=== PATIENT | female | born 1960 | race Caucasian/White ===

== ENCOUNTER 2017-12-19 13:42 | Emergency (ER) | payer OTHER ==
[2017-12-19 16:41] LABS: ADD MAN DIFF? NO
[2017-12-19 16:45] LABS: WHITE BLOOD COUNT 12.2 10^3/ul (4.8-10.8)
[2017-12-19 16:45] LABS: ABNORMAL IP MESSAGE 1; BASOPHIL # 0.1 10^3/ul (0.0-0.1); BASOPHILS % 0.6 % (0.0-2.0); EOSINOPHILS # 0.2 10^3/ul (0.0-0.5); EOSINOPHILS % 1.7 % (0.0-7.0); HEMATOCRIT 41.3 % (37.0-47.0); HEMOGLOBIN 13.4 g/dl (12.0-16.0); LYMPHOCYTES # 6.1 10^3/ul (0.8-2.9); LYMPHOCYTES % 50.3 % (15.0-51.0); MEAN CORPUSCULAR HEMOGLOBIN 26.2 pg (29.0-33.0); MEAN CORPUSCULAR HGB CONC 32.4 g/dl (32.0-37.0); MEAN CORPUSCULAR VOLUME 80.7 fl (82.0-101.0); MEAN PLATELET VOLUME 10.9 fl (7.4-10.4); MONOCYTES % 8.5 % (0.0-11.0); NEUTROPHIL # 4.7 10^3/ul (1.6-7.5); NEUTROPHILS % 38.7 % (39.0-77.0); PLATELET COUNT 255 10^3/UL (140-415); RED BLOOD COUNT 5.12 10^6/ul (4.20-5.40)
[2017-12-19 16:57] LABS: POSITIVE DIFF @See below
[2017-12-19 17:02] LABS: ANION GAP 10 (8-16); BLOOD UREA NITROGEN 10 mg/dl (7-20); CALCIUM 9.1 mg/dl (8.4-10.2); CARBON DIOXIDE 27 mmol/L (21-31); CHLORIDE 106 mmol/L (97-110); CREATININE 0.69 mg/dl (0.44-1.00); GLUCOSE 83 mg/dl (70-220); POTASSIUM 4.3 mmol/L (3.5-5.1); SODIUM 139 mmol/L (135-144)
[2017-12-19 17:06] LABS: INR 1.04; PROTIME 13.7 Sec (11.9-14.9); PT RATIO 1.1
[2017-12-19 17:13] LABS: B-TYPE NATRIURETIC PEPTIDE 37 PG/ML (0-125); TROPONIN-I < 0.012 ng/ml (0.000-0.120)
[2017-12-19] MEDS: KETOROLAC 15 MG INJ IM (17:41)
[2017-12-19 19:51] LABS: TROPONIN-I < 0.012 ng/ml (0.000-0.120)
== END 2017-12-19 20:18 | disposition home or self-care (01) ==
LOC: E/R 13:42
DX: M50.10 Cervical disc disorder with radiculopathy, unspecified cervical region (principal); E03.9 Hypothyroidism, unspecified; I10 Essential (primary) hypertension; R07.9 Chest pain, unspecified; R20.2 Paresthesia of skin; D72.829 Elevated white blood cell count, unspecified; M79.1 Myalgia; Z79.82 Long term (current) use of aspirin
CPT/HCPCS: 36415; 70450; 71045; 72125; 80048; 83880; 84484; 85025; 85610; 93005; 96372; 99285-25

== ENCOUNTER 2018-10-28 10:29 | Day surgery (SDC) | payer OTHER ==
[2018-10-28] MEDS: SOD CHLORIDE 0.9% 1,000 ML IV (12:03)
[2018-10-28] MEDS ORDERED: IOHEXOL 300MG/ML 30 ML BTL (13:20)
[2018-10-28] MEDS ORDERED: PROPOFOL 20 ML ×4 (15:16→15:49)
[2018-10-28] MEDS ORDERED: LIDOCAINE 2% (SDV) 5 ML INJ (15:16)
[2018-10-28] MEDS ORDERED: MIDAZOLAM 1 MG/ML 2 ML INJ (15:16)
[2018-10-28] MEDS ORDERED: ONDANSETRON 4 MG INJ (15:37)
[2018-10-28] MEDS ORDERED: FAMOTIDINE 20 MG INJ (15:37)
[2018-10-28] MEDS ORDERED: hydrALAzine 20 MG INJ (16:20)
[2018-10-28] MEDS ORDERED: LABETALOL HCL 20MG INJ IV (16:30)
[2018-10-28] MEDS ORDERED: DIPHENHYDRAMINE 50 MG INJ IV (16:30)
[2018-10-28] MEDS ORDERED: ONDANSETRON 4 MG INJ IV (16:30)
[2018-10-28] MEDS ORDERED: FENTAnyl 50 MCG/ML VIAL IV (16:30)
[2018-10-28] MEDS ORDERED: HYDROmorphONE 1 MG/5 ML IV SYRINGE IV (16:30)
[2018-10-28] MEDS ORDERED: hydrALAzine 20 MG INJ IV (16:30)
== END 2018-10-28 17:15 | disposition home or self-care (01) ==
LOC: SDS 10:29 → GIL 10:39 → SDS 10:29
DX: Z12.11 Encounter for screening for malignant neoplasm of colon (principal); K57.30 Diverticulosis of large intestine without perforation or abscess without bleeding; K29.30 Chronic superficial gastritis without bleeding; B96.81 Helicobacter pylori [H. pylori] as the cause of diseases classified elsewhere
CPT/HCPCS: 43239; 71045; 88305; 88312